=== PATIENT | female | born 1955 | race Caucasian/White ===

== ENCOUNTER 2021-12-14 16:46 | Emergency (ER) | payer OTHER ==
[~2021-12-14 16:46] MED LIST: ANTIVERT 12.512.5 MG PO; HYDROXYZINE HCL25 MG PO
== END 2021-12-14 20:05 | disposition home or self-care (01) ==
LOC: ER1 16:46
DX: U07.1 COVID-19 (principal); J40 Bronchitis, not specified as acute or chronic; I10 Essential (primary) hypertension; D64.9 Anemia, unspecified; Z85.3 Personal history of malignant neoplasm of breast; Z90.10 Acquired absence of unspecified breast and nipple
CPT/HCPCS: 36600; 71045; 82803; 93005; 99285